=== PATIENT | male | born 2005 | race Caucasian/White ===

== ENCOUNTER 2024-03-01 13:08 | Emergency (ER) | payer BC, SELFPAY ==
[2024-03-01 13:31] VITALS: BP 108/69; PULSE 61; RESP 16; TEMP 36.9; O2SAT 96; BMI 25.1
--- NOTE | 2024-03-01 16:39 | ED_ITS ---
HPI - General Adult General Date Seen: 03/01/24 Chief complaint: Dizziness/Vertigo Stated complaint: passed out, feeling dizzy Time Seen by Provider: 03/01/24 16:39 History of Present Illness HPI narrative: This is a 18-year-old male presenting to the ER today presenting to the ER today for a near syncopal event. He recalls that he had an episode last week where he did pass out in class. He had a similar episode this morning but did not quite lose consciousness this time. The episode lasted about 10 or 15 minutes. He did not eat breakfast before class. During this morning's episode he recalls feeling normal this morning before going to class. He had been in a biology lecture for about an hour and 10 minutes. Early in a lecture his did have an episode rate started to feel a little bit lightheaded so he got up and walked to the bathroom and felt better. He was sitting at his desk and started to feel somewhat dizzy, a little bit sweaty, vaguely weak, and lightheaded. He was beginning to feel his vision go feldman. He started to lean forward in his desk. He did not have any chest pain. No palpitation. No shortness of breath. No back pain. No headache. No focal numbness or weakness. Today did not fully lose consciousness, but he came close. He felt dizzy and lightheaded for about 10 or 20 minutes and then felt better. He notes that he has a family history of pulmonary embolism. His father had bilateral pulmonary emboli without unclear known call us and is on lifelong blood thinners. Father notes that he has been doing a lot of work lately. He is working full- time. He is also taking classes. His father wonders if he is not getting enough rest. Related Data Home Medications ?Medication ?Instructions ?Recorded ?Confirmed escitalopram oxalate 20 mg tablet 20 mg PO DAILY 11/23/23 03/01/24 omeprazole 20 mg capsule,delayed 20 mg PO DAILY 03/01/24 03/01/24 release Previous Rx's ?Medication ?Instructions ?Recorded ondansetron 4 mg disintegrating 4 mg PO Q8H PRN nausea and 11/23/23 tablet vomiting #14 tabs Allergies Allergy/AdvReac Type Severity Reaction Status Date / Time Penicillins Allergy Verified 03/01/24 13:30 PFSH PFSH Social History Smoking Status: Never smoker Do you use any of these nicotine containing products: None Second hand tobacco smoke exposure: No How often do you have a drink containing alcohol: never AUDIT-C Alcohol total score: 0 Non-prescribed substance use: marijuana (any form) service: No Exam Narrative: Exam Narrative: Constitutional: Appears well-developed and well-nourished. Alert. Conversant. Non toxic. HENT: Head: Atraumatic. Nose: Nose normal. Mouth/Throat: Oral mucosa is clear and moist. no trismus. Pharynx normal. Tonsils symmetric. No tonsillar enlargement, erythema, or exudate. Eyes: Conjunctivae normal. EOM normal. Pupils equal, round, and reactive to light. No scleral icterus. Neck: Normal range of motion. Neck supple. No tracheal deviation present. No JVD. No thyromegaly. Cardiovascular: Normal rate, regular rhythm. No gallop. No friction rub. No murmur heard. Symmetric radial and PT artery pulses Pulmonary/Chest: Effort normal. No stridor. No respiratory distress. No wheezes. No rales. No rhonchi . Abdominal: Soft.No distension. No mass. No tenderness. No rebound. No guarding. Musculoskeletal: RUE: Normal range of motion. No tenderness. No deformity LUE: Normal range of motion. No tenderness. No deformity RLE: Normal range of motion. No edema. No tenderness. No deformity LLE: Normal range of motion. No edema. No tenderness. No deformity Lymph: No cervical adenopathy. Neurological: Alert and oriented to person, place, and time. Normal strength. CN II-VII intact. No sensory deficit. GCS eye subscore is 4. GCS verbal subscore is 5. GCS motor subscore is 6. Normal coordination . No focal deficits. Skin: Skin is warm and dry. No rash noted. No pallor. Normal capillary refill. Psychiatric: Normal mood. Normal affect. Const: Vital Signs, click to edit/add: Vital Signs - 24 hr 03/01/24 13:31 Temperature 98.4 F Pulse Rate [Pulse Oximeter] 61 Respiratory Rate 16 Blood Pressure [Ri ght Upper Arm] 108/69 Pulse Oximetry 96 Oxygen Delivery Me thod Room Air Course Vital Signs Vital signs: Initial Vital Signs Temperature 98.4 F 03/01/24 13:31 Temperature Source Temporal Artery Scan 03/01/24 13:31 Pulse Rate 61 03/01/24 13:31 Pulse Rhythm Regular 03/01/24 13:31 Pulse Strength 3+ Normal 03/01/24 13:31 Respiratory Rate 16 03/01/24 13:31 Blood Pressure 108/69 03/01/24 13:31 Blood Pressure Mean 82 03/01/24 13:31 Blood Pressure Position Sitting 03/01/24 13:31 Pulse Oximetry 96 03/01/24 13:31 Oxygen Delivery Method Room Air 03/01/24 13:31 Vital Signs Temperature 98.4 F 03/01/24 13:31 Pulse Rate 61 03/01/24 13:31 Respiratory Rate 16 03/01/24 13:31 Blood Pressure 108/69 03/01/24 13:31 Pulse Oximetry 96 03/01/24 13:31 Oxygen Delivery Method Room Air 03/01/24 13:31 Temperature 98.4 F 03/01/24 13:31 Pulse Rate 61 03/01/24 13:31 Respiratory Rate 16 03/01/24 13:31 Blood Pressure 108/69 03/01/24 13:31 Pulse Oximetry 96 03/01/24 13:31 Oxygen Delivery Method Room Air 03/01/24 13:31 Medical Decision Making MDM Narrative Medical decision making narrative: This patient presents for evaluation of a near syncopal event. He also had another syncopal event that occurred about 2 weeks ago. A broad differential was considered. History provided suggests a benign cause of syncope. No murmurs . Initial ECG shows normal sinus rhythm and no dysrhythmogenic abnormality such as WPW, prolonged QT, Brugada syndrome, and no ischemia. No symptoms/findings c oncerning for cardiac ischemia or ACS . No headache or other neurologic symptoms to suggest subarachnoid , stroke . No reported seizure-like activity or postictal phase. gambling monitor while the patient here in the ER showed no dysrhythmia or ectopy. A broad differential diagnosis was considered including SVT, Atrial fibrillation, ventricular arrhythmia, thyroid disease, acute electrolyte abnormality, drugs/medications, medication side effect, anemia, heart disease, PE, among others. The workup and exam here in ED shows low risk for dangerous cause of the patient's syncope, and no risks factors to warrant admission. Clinical judgement suggests that supportive outpatient management is indicated. Recommend follow up with primary care to arrange outpatient Holter monitor and consider possible echo.. Questions answered and return precautions given. Patient and father agreeable and eager for discharge. Lab Data Labs: Lab Results 03/01/24 03/01/24 Range/Units 16:40 16:41 WBC 6.28 (4.50-11.00) K/uL RBC 5.37 (4.30-5.90) m/uL Hgb 15.4 (13.5-17.5) gm/dL Hct 46.2 (37.0-53.0) % MCV 86 (80-100) fL MCH 29 (26-34) pg MCHC 33 (32-36) gm/dL RDW Coeff of Nadia 12.3 (11.5-15.5) % Plt Count 226 (140-440) K/uL Neut % (Auto) 55.6 (42.0-72.0) % Lymph % (Auto) 39.6 (20-44) % [place] % (Auto) 4.1 (0.0-11.0) % Eos % (Auto) 0.3 (0.0-7.0) % Baso % (Auto) 0.2 (0.0-3.0) % Neut # (Auto) 3.49 (1.7-7.0) K/uL Lymph # (Auto) 2.49 (0.90-2.90) K/uL [place] # (Auto) 0.30 (0.00-0.90) K/UL Eos # (Auto) 0.02 (0.00-0.50) K/uL Baso # (Auto) 0.01 (0.00-0.30) K/uL Abs Immat Gran (auto) 0.01 (0.00-0.30) K/uL Imm/Tot Granulo (auto) 0.2 % D-Dimer Quant (PE/DVT) 0.31 (0.00-0.50) ug/ml Sodium 139 (135-149) mmol/L Potassium 3.6 (3.6-5.1) mmol/L Chloride 103 (96-114) mmol/L Carbon Dioxide 25 (20-32) mmol/L Anion Gap 11 (7-15) mEq/L BUN 12 (5-24) mg/dL Creatinine 0.8 (0.5-1.5) mg/dL Estimated Creat Clear 156.88 Estimated GFR 130 ml/min Glucose 92 (60-115) mg/dL Calcium 9.1 (8.4-10.6) mg/dL Troponin I < 0.01 L (0.01-0.04) ng/mL ECG Data Attestation: I personally reviewed and interpreted this ECG as follows: Interpretation: Sinus bradycardia Rate: 48 CA: 142 QRS axis: Normal axis ST segment/T wave: No ST segment elevation or depression. T-wave inversion in AVR QTc: 410 Discharge Plan Discharge Clinical Impression: Near syncope Patient Disposition: Home, Self-Care Condition: Stable Instructions: Near Syncope (ED) Additional Instructions: As we discussed, please come back to the ER right away if you have any episodes of chest pain, trouble breathing, more episodes of dizziness or fainting, or if you have any concerns. Please follow-up with your regular doctor for recheck within the next 1-2 weeks. Please try to stay hydrated. Eat healthy breakfast every day. If you feel a dizzy spell coming on sit down or lie down so that you avoid any injury from fainting. Prescriptions: No Action escitalopram oxalate 20 mg tablet 20 mg PO DAILY ondansetron 4 mg tablet,disintegrating 4 mg PO Q8H PRN (Reason: nausea and vomiting) Qty: 14 0RF omeprazole 20 mg capsule,delayed release(DR/EC) 20 mg PO DAILY Follow Up/Referrals: Chi Davalos MD [Primary Care Provider] - Stand Alone Forms: [employer] Info Instructions
[2024-03-01 17:36] LABS: Basophils Absolute Auto 0.01 K/uL (0.00-0.30); Basophils Percent Auto 0.2 % (0.0-3.0); Eosinophils Absolute Auto 0.02 K/uL (0.00-0.50); Eosinophils Percent Auto 0.3 % (0.0-7.0); Hematocrit 46.2 % (37.0-53.0); Hemoglobin* 15.4 gm/dL (13.5-17.5); Immature Granulocytes Abs Auto 0.01 K/uL (0.00-0.30); Immature Granulocytes Pct Auto 0.2 %; Lymphocytes Absolute Auto 2.49 K/uL (0.90-2.90); Lymphocytes Percent Auto 39.6 % (20-44); Mean Corpuscular HGB Conc 33 gm/dL (32-36); Mean Corpuscular Hemoglobin 29 pg (26-34); Mean Corpuscular Volume 86 fL (80-100); Monocytes Percent Auto 4.1 % (0.0-11.0); Neutrophils Absolute Auto 3.49 K/uL (1.7-7.0); Neutrophils Percent Auto 55.6 % (42.0-72.0); Platelet Count* 226 K/uL (140-440); RDW Coefficient of Variation % 12.3 % (11.5-15.5); Red Blood Count 5.37 m/uL (4.30-5.90); White Blood Count* 6.28 K/uL (4.50-11.00)
[2024-03-01 17:38] LABS: Chloride* 103 mmol/L (96-114); Sodium* 139 mmol/L (135-149)
[2024-03-01 17:39] LABS: Potassium* 3.6 mmol/L (3.6-5.1)
[2024-03-01 17:40] LABS: Slide Review Reflex No
[2024-03-01 17:41] LABS: Anion Gap 11 mEq/L (7-15); Carbon Dioxide* 25 mmol/L (20-32); Creatinine* 0.8 mg/dL (0.5-1.5); Est. Creatinine Clearance* 156.88; Estimated Glomerular Filt Rate 130 ml/min
[2024-03-01 17:42] LABS: Blood Urea Nitrogen* 12 mg/dL (5-24); Calcium* 9.1 mg/dL (8.4-10.6); Glucose* 92 mg/dL (60-115)
[2024-03-01 17:46] LABS: D Dimer Quantitative* 0.31 ug/ml (0.00-0.50)
[2024-03-01 17:55] LABS: Troponin I* < 0.01 ng/mL (0.01-0.04)
== END 2024-03-01 18:28 | disposition home or self-care (01) ==
PROVIDERS: Emergency Provider Emergency Medicine; PCP Surgery
DX: R55 Syncope and collapse (principal)
CPT/HCPCS: 36415; 80048; 84484; 85025; 85379; 93005; 99283; 99284